=== PATIENT | male | born 1990 | race Caucasian/White ===

== ENCOUNTER 2017-08-09 08:29 | Emergency (ER) | payer OTHER ==
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
[2017-08-09 12:00] VITALS: BP 140/80
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
== END 2017-08-09 12:43 ==
LOC: ERH 08:29
DX: M25.561 Pain in right knee (principal)
CPT/HCPCS: 72100; 73562-RT; 96372; J1885

== ENCOUNTER 2017-08-19 12:01 | Inpatient (IN) | payer OTHER ==
[~2017-08-19] VITALS: Ht 177.8 cm; Wt 65.5 kg
[2017-08-19 13:47] VITALS: BP 121/62
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
--- NOTE | 2017-08-19 15:01 | History & Physical ---
General Information and HPI MD Statement: I have seen and personally examined JOHNNIE STEINBERG and documented this H&P. The patient is a 26 year old M who presented with a patient stated chief complaint of cocaine use. Source of Information: patient Exam Limitations: no limitations History of Present Illness: 26 y/o M with pmh sig for anxiety, depression is admitted to [facility] from [facility] emergency room. Patient went to [facility] emergency room because he started to use drugs. Patient feels stressed out and depressed. He denies any suicidal ideation. He claims that he was sober for a while but started to use again. He is mainly using cocaine which he is inhaling. He denies use of any other drugs. He denies any aches or pains. He denies any shortness of breath, chest pain, nausea, vomiting, urinary complaints. He denies any suicidal or homicidal ideation at this time. Allergies/Medications Allergies: Coded Allergies: NO KNOWN ALLERGIES (08/09/17) Past History Medical History Neurological: NONE EENT: NONE Cardiovascular: NONE Respiratory: NONE Gastrointestinal: NONE Hepatic: NONE Renal: NONE Musculoskeletal: ADA Psychiatric: anxiety, depression, substance abuse Endocrine: NONE Blood Disorders: NONE Cancer(s): NONE CARBON PAPER INTERLEAFER/Reproductive: NONE History of MRSA: No History of VRE: No History of CDIFF: No Isolation History: Standard Surgical History Surgical History: non-contributory Past Family/Social History Family History Relations & Conditions if any Relation not specified for: *No pertinent family history Psychosocial History Where do you live? Other Review of Systems Review of Systems Constitutional: Reports: see HPI. EENTM: Reports: see HPI. Cardiovascular: Reports: see HPI. Respiratory: Reports: see HPI. GI: Reports: see HPI. Skin: Reports: see HPI. Neurological/Psychological: Reports: see HPI. Exam & Diagnostic Data Last 24 Hrs of Vital Signs/I&O Vital Signs Date Time Temp Pulse Resp B/P B/P Pulse O2 O2 Flow FiO2 Mean Ox Delivery Rate 08/19 1347 98.1 72 121/62 Intake & Output 08/19 1600 08/19 0800 08/19 0000 Intake Total Output Total Balance Patient 144 lb Weight Physical Exam General Appearance Alert, Oriented X3, Cooperative, No Acute Distress Skin No Rashes HEENT PERRLA Neck Supple Cardiovascular Regular Rate, Normal S1, Normal S2 Lungs Clear to Auscultation Abdomen Normal Bowel Sounds, Soft, No Tenderness Neurological Cranial Nerves II through XII: INTACT Last 24 Hrs of Labs/Marcus: NO LABS DONE YET. Assessment/Plan Assessment: 26-year-old male with past history significant for anxiety, depression who is admitted to Inpatient Psychiatry for relapsing for drug use. I will order some basic blood work. I will also check urine toxicology. I reviewed patient's EKG from [facility] and he is in sinus rhythm. I will leave the psych management up to psychiatry. Patient otherwise denies any medical problems or any complaints. As Ranked By This Provider Problem List: 1. Anxiety 2. Depression Miscellaneous Miscellaneous Documentation Attending Case Discussed With: ACOSTA WILLIAM MD Primary Care Physician: Patient Has No Primary Care Dr Patient sees these Specialists UNKNOWN Level of Patient Care: BELKYS Darby
[2017-08-19 15:48] VITALS: BP 111/64
[2017-08-19 16:23] LABS: ABSOLUTE BASOPHIL COUNT 0 /CUMM (0.0-0.2); ABSOLUTE EOSINOPHIL COUNT 0.2 /CUMM (0.0-0.7); ABSOLUTE GRANULOCYTE CT 3.2 /CUMM (1.4-6.5); ABSOLUTE LYMPH COUNT 1.7 /CUMM (1.2-3.4); ABSOLUTE MONOCYTE COUNT 0.4 /CUMM (0.10-0.60); BASOPHIL % 0.1 % (0.0-2.0); EOSINOPHIL % 3.2 % (0-5); GRANULOCYTE % 57.9 % (42.2-75.2); HEMATOCRIT 47.2 % (42-52); MEAN CORPUSCULAR HGB 31.5 PG (27.0-31.0); MEAN CORPUSCULAR HGB CONC 33.1 G/DL (33.0-37.0); MEAN CORPUSCULAR VOLUME 95.2 FL (80.0-94.0); MEAN PLATELET VOLUME 9.1 FL (7.4-10.4); PLATELET COUNT 203 /CUMM (130-400); RBC DISTRIBUTION WIDTH 14.9 % (11.5-14.5); RED BLOOD CELL CT 4.96 /CUMM (4.70-6.10); WHITE BLOOD CELL COUNT 5.5 /CUMM (4.8-10.8)
[2017-08-19 19:51] VITALS: BP 126/64
[2017-08-20 07:41] VITALS: BP 92/48
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
[2017-08-20 12:12] VITALS: BP 130/78
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
--- NOTE | 2017-08-20 14:17 | SOCIAL WORKER PROG NOTE PSYCH ---
Social Work Progress Note Progress Note Pt reports he had an argument with his father, they just began living together after Xmas, he hasn't lived home in 7 years. Pt reports he has an intake with [facility] on August 27, because he relasped and needs structure as he tries to find a job. Pt has an AA sponsor and he reportedly informed him of the relapse last week. Pt is cooperative, and offers he may be depressed "sometimes I can't get myself motivated to do anything, but I want to do it, it's had to explain".
[2017-08-20 16:13] VITALS: BP 126/57
[2017-08-20 20:14] VITALS: BP 149/62
[2017-08-21 07:34] VITALS: BP 122/59
--- NOTE | 2017-08-21 08:29 | CP SOUTH PROGRESS NOTE PSYCH ---
Psych (Inpt) Progress Note Progress Note Vital Signs Date Time Temp Pulse B/P 08/21 0734 97.2 76 122/59 08/20 2209 58 121/59 08/20 2013 98.4 60 149/62 08/20 1613 61 126/57 Mental Status Examination: He said he slept well last night with nightmares (with the help of Temazepam and Prazosin), this is quite a change since patient has not slept well in years (he avoids sleeping because of nightmares, and would not take meds in the past) Steady gait, calm and cooperative, Increased psychomotor activity, no bizarre behaviors Talkative but not pressured, full range of affect, Denied feeling depressed, Denied thinking of suicide, Denied tingling of violence or homicide, Denied hallucinations, Denied feeling paranoid, there were no specific delusions during the interview, There were no difficulties with thought organization Poor insight, poor judgment (a chronic problem for Josue), alert and oriented to time place and person, Significant difficulties with attention concentration, there is suspicion of multiple learning disabilities No short-term memory impairment Impression and Plan: 26-year-old single white male adopted who was admitted throught [facility]'s ED "I did not know where to go, so I went to [facility] and said I was suicidal to get admitted." Diagnosis(es): Unspecified depressive disorder PTSD Rule out multiple learning disabilities Substance Use Disorder Treatment Plan: Increase Sertraline to 50 mg PO Q 08:00 AM Continue Prazosin 2 mg QHS Inpatient psychiatric unit with with with 15 minute checks Nursing to do nursing assessments vital signs and provide education to the patient Group therapy and milieu therapy Social work to obtain collateral information and set up aftercare plans and discharge plans Psychiatrist met with the patient daily for medication management and reevaluation of his mental status
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
[2017-08-21 11:51] VITALS: BP 118/72
[2017-08-21 15:52] VITALS: BP 141/66
[2017-08-21 20:07] VITALS: BP 126/63
[2017-08-22 07:48] VITALS: BP 123/59
[2017-08-22 12:18] VITALS: BP 110/63
--- NOTE | 2017-08-22 13:10 | CP SOUTH PROGRESS NOTE PSYCH ---
Psych (Inpt) Progress Note Progress Note Include the following elements, when applicable: Involvement in the active treatment of the patient with behavioral observations of the patient and the patient's response to the treatment. Review of the ongoing treatment process in the context of the treatment plan. Indication of how multi-disciplinary staff members are carrying out the treatment plan. Plans for future interventions and recommendations for revision of the treatment plan. Liaison with other physicians/providers. Progress Note: Chart reviewed, progress discussed with nursing staff. Interviewed patient this morning. Limited, superficial interaction with me this morning. Denies any current complaints. Denies any depressed mood, SI or HI, AVH, medication side effects. Vital signs were reviewed and within normal limits. No new laboratory results today. Mental status exam: Well groomed, man of apparent stated age. Her eye contact. No psychomotor retardation or agitation. Speech was of limited amount. Mood was "okay ", affect was constricted, non-labile. Thought process was logical and linear, thought content without SI or HI. Denies any perceptual disturbances. Cognition was grossly intact. Insight and judgment were fair. A/P: Mood continues to slowly improve. No medication side effects. Will continue present management as per primary team.
[2017-08-22 16:02] VITALS: BP 126/67
[2017-08-22 19:32] VITALS: BP 122/68
[2017-08-23 07:57] VITALS: BP 107/61
[2017-08-23 12:03] VITALS: BP 130/71
--- NOTE | 2017-08-23 13:17 | CP SOUTH PROGRESS NOTE PSYCH ---
Psych (Inpt) Progress Note Progress Note Include the following elements, when applicable: Involvement in the active treatment of the patient with behavioral observations of the patient and the patient's response to the treatment. Review of the ongoing treatment process in the context of the treatment plan. Indication of how multi-disciplinary staff members are carrying out the treatment plan. Plans for future interventions and recommendations for revision of the treatment plan. Liaison with other physicians/providers. Progress Note: Chart reviewed, progress discussed with nursing staff. Interviewed patient this morning. As was the case yesterday, he engaged in a limited, superficial interaction with me, denying any complaints, but providing limited if any information. He denies any SI or HI. Denies AVH, denies medication side effects. I did have the opportunity to observe his behavior on the unit while he was interacting with the nursing staff. It was quite unusual, at times hopping from foot to foot in an animated manner. Vital signs were reviewed and within normal limits. No new laboratory results today. Mental status exam: Well groomed, man of apparent stated age. Fair eye contact. Positive psychomotor agitation noted while patient was in the unit milieu. Speech was of limited amount. Mood was "okay ", affect was constricted , non-labile. Thought process was logical and linear, thought content without SI or HI. Denies any perceptual disturbances. Cognition was grossly intact. Insight and judgment were fair. A/P: Mood continues to slowly improve. No medication side effects. Limited engagement. Unusual behavior in unit milieu. Will continue present management as per primary team.
[2017-08-23 16:07] VITALS: BP 137/71
[2017-08-23 19:50] VITALS: BP 116/66
[2017-08-24 07:37] VITALS: BP 117/62
--- NOTE | 2017-08-24 10:48 | SOCIAL WORKER PROG NOTE PSYCH ---
Social Work Progress Note Progress Note Discussed patient in team meeting this morning and decision was made to discharge today. Scheduled intake at [facility] for 1:15pm today. Met with Josue to review his plan. Dad will pick him up at 1pm from [facility] and go with his to his appt. Josue presented as a little hyper this morning. He said he feels good and it's better for him. I encouraged him to slow down a bit and be cautious about making any impulsive decisions. He shared that his parents visited with him both days over the weekend. Encouraged him to try and keep the peace with his parents and to take a walk or utilize another coping skill if he and his parents are not getting along. He said he initially didn't want to be here, but he was glad he was here stating that the medication seemed beneficial. He was told that he would be off the Klonopin today as [facility] doesn't allow people in their dual program on a benzo. He seemed fine with that plan. He reports he is sleeping well and he has not had any nightmares recently. Encouraged him to go to AA meetings. He said he had a meeting book and would be connecting with his sponsor.
[2017-08-24 12:07] VITALS: BP 143/61
[2017-08-24] MEDS ORDERED: PRAZOSIN HCL2 M1 PO (13:31)
[2017-08-24] MEDS ORDERED: SERTRALINE HCL50 MG PO (13:31)
--- NOTE | 2017-08-24 13:35 | Patient Discharge Instructions ---
Psych Discharge Inst General Discharge Information Reason for Admission: he siad he was thinking of suicide Psy Discharge Primary Diag+ Unspecified Depressive Di Learning Disability Psy Discharge Secondary Diag+ Substance Use Disorder Summary Tests/Major Procedures None Studies Pending at DC: none Patient Instructions Contact Information Your Psychiatrist on [facility] was Alonzo Yost MD * If you are experiencing an emergency related to this hospitalization, please call [phone] to contact the treating psychiatrist or the psychiatrist-on- call. * To Request a copy of your medical records, please contact the Medical Records Department at [phone]. * To request results of studies pending at the time of discharge, please call [phone]. * Continue your Medications until directed to stop by your Healthcare provider. General Medication Information Please continue to take your new medications and your continued home medications , unless otherwise indicated on your discharge medication list, or unless directed by your MD or DRY ROASTER to stop them. Special Instructions Diet Regular Activity As Tolerated - Tobacco Use Treatment Offered Post DC Medications Offered: Refused Tob Medication Tx Post DC Tobacco Treatment Plan: Refused Tobacco Tx Pgm - EtOH/Drug Use D/O Treatment Offered Post DC Medications Offered: NA-No EtOH/Drug Use D/O Post DC EtOH/SubAbuse TX Plan: NA-No EtOH/Drug Use D/O Metabolic Screening ([X) Not Applicable, patient not on a neuroleptic. OR () Patient on a neuroleptic(s) . Enter below results for Hemoglobin A1C, and lipid panel if obtained during the last 365 days. BMI: 20.000 Blood Pressure: 143/61 Laboratory Results From [facility] (If applicable): Advance Directives Does the Patient have Medical Advance Directives No/Refused further info Does Pt have Psychiatric Advance Directives? No/Refused further info Does Patient have a Designated Surrogate Decision Maker: No Information About Psychiatric Advance Directives Provided? Refused Discharge Plan Post Hospital Treatment Plan: Home
--- NOTE | 2017-08-24 15:09 | CP SOUTH PROGRESS NOTE PSYCH ---
Psych (Inpt) Progress Note Progress Note Vital Signs Date Time Temp Pulse Resp B/P B/P Pulse O2 O2 Flow FiO2 Mean Ox Delivery Rate 08/24 1207 69 143/61 08/24 0737 95.9 74 117/62 08/23 2140 98.0 71 116/66 08/23 1950 98.0 71 [id number] 08/23 1607 76 137/71 Mental Status Examination: The patient was in good spirits today and said he slept well last 3 nights with no nightmares (with the help of Temazepam and Prazosin), The patient was steady in his gait He was calm and cooperative, he does have chronic increased psychomotor activity , no bizarre behaviors The patient was talkative but not pressured, full range of affect, he denied feeling depressed, denied thinking of suicide, denied tingling of violence or homicide, and denied hallucinations, The patient denied feeling paranoid, there were no specific delusions during the interview, There were no difficulties with thought organization Josue has chronic poor insight and poor judgment alert and oriented to time place and person, Chronic difficulties with attention concentration, there is suspicion of multiple learning disabilities No short-term memory impairment Assessment: Josue is [id number] single adopted white male who was admitted throught [facility]'s ED. He reported that "I did not know where to go, so I went to [facility] and said I was suicidal to get admitted." Diagnosis(es): Unspecified depressive disorder PTSD Rule out multiple learning disabilities Substance Use Disorder Plan: D/C Home with IOP follow up
--- NOTE | 2017-08-24 15:15 | DISCHARGE SUMMARY REPORT-PSYCH ---
Visit Information Visit Dates/Diagnosis' Admission Date: 08/19/17 Discharge Date: 08/24/17 Reason for Admission: he siad he was thinking of suicide Psy Discharge Primary Diag: Unspecified Depressive Di Learning Disability Psy Discharge Secondary Diag: Substance Use Disorder Hospital Course Course Allergies: Coded Allergies: NO KNOWN ALLERGIES (08/09/17) Discharge HBIPS - Tobacco Use Treatment Offered - EtOH/Drug Use D/O Treatment Offered Metabolic Screening - Screen if on a Neuroleptic Medication - Metabolic screening should include: - Blood Pressure, BMI, Glucose or Hgb A1c, & a - Lipid profile from within the past 365 days. Discharge Instructions General Discharge Information Discharge Diet Regular Discharge Activity As Tolerated Referrals Ordered Referrals Provider Referral 08/24/17 For Groups: [ IOP] Intensive Outpatient Program dual program to address mental health and substance use Intake 08/24/17 1:15pm [address] [place] [id number] Prescriptions Start taking the following new medications: Prazosin HCl (Prazosin HCl) 2 MG CAPSULE 2 Milligram ORAL AT BEDTIME Qty = 15 No Refills Sertraline HCl (Sertraline HCl) 50 MG TABLET 50 Milligram ORAL DAILY @8 AM Qty = 30 No Refills Studies Pending at Discharge none
--- NOTE | 2017-08-24 15:24 | SOCIAL WORKER PROG NOTE PSYCH ---
Social Work Progress Note Faxed Referral(s) Referred To: [facility] Transition of Care Documents sent: Health Summary Faxed to: [facility] Fax #: [phone] Faxed by: Amanda Cristina Date faxed: 08/24/17 Time Faxed: [phone]
== END 2017-08-24 13:42 | DRG 881 ==
LOC: CP SOUTH 12:01
PROVIDERS: Hospitalist
DX: F32.9 Major depressive disorder, single episode, unspecified (principal); F19.90 Other psychoactive substance use, unspecified, uncomplicated; F81.9 Developmental disorder of scholastic skills, unspecified
CPT/HCPCS: 36415; 80307; 82436; G0463